=== PATIENT | female | born 1950 | race Caucasian/White ===

== ENCOUNTER 2018-04-01 22:37 | Emergency (ER) | payer MEDICARE, OTHER, SELFPAY ==
[2018-04-01 22:38] VITALS: BP 145/65; PULSE 72; RESP 15; TEMP 36.6; BMI 22.1
--- NOTE | 2018-04-01 22:47 | ED.RN ---
RN CALLED FOR EKG, NO OLD EKGS IN MUSE
--- NOTE | 2018-04-01 23:18 | EKG12_ITS ---
Test Reason : CP Blood Pressure : / mmHG Vent. Rate : 065 BPM Atrial Rate : 065 BPM P-R Int : 152 ms QRS Dur : 072 ms QT Int : 394 ms P-R-T Axes : 016 007 002 degrees QTc Int : 409 ms Normal sinus rhythm Minimal voltage criteria for LVH, may be normal variant Possible Inferior infarct , age undetermined Abnormal ECG Confirmed by ANNETTE DELA CRUZ, JORGE ([id number]), newspaper or periodical editor MICHEL MANCILLA ([id number]) on 04/04/2018 9:08:41 AM Referred By: ERLINDA Confirmed By:JORGE BRYANT MD
--- NOTE | 2018-04-01 23:18 | RAD_ITS ---
STUDY: X-RAY CHEST REASON FOR EXAM: Female, 68 years old. C/O MID EPIGASTRIC CP THAT STARTED ABOUT AN HOUR AGO. HAS HAD SIMILAR EPISODES OF PAIN THIS MONTH TECHNIQUE: Frontal and lateral views of the chest. COMPARISON: None. FINDINGS: The lungs are clear and expanded. There is no demonstrated pleural abnormality. Normal size heart. Normal mediastinum and masood. Normal visualized pulmonary arteries. Normal visualized aortic arch and descending thoracic aorta. There are diffuse degenerative changes of the visualized thoracic spine. Normal visualized ribs, clavicles, and shoulders. There is no demonstrated abnormality of the visualized soft tissue structures of the upper abdomen. RAD/Chest PA and Lateral IMPRESSION: Degenerative changes, as described above. No demonstrated acute cardiopulmonary process. Electronically Signed: Sia Perez MD at 1:35 EST Tel , Service support ,
--- NOTE | 2018-04-01 23:19 | ED.VIS.GEN ---
History of Present Illness Chief Complaint: Chest Pain Informant: Patient Onset: Today - started 2 hrs ago Context: Sudden Onset - while at rest Timing: Continuous Quality: burning w/ some tightness Location: central chest, radiating up to throat Current Severity: Mild Maximum Severity: Moderate Worsened by: sitting up or standing. nonpleuritic, nonexertional. Relieved by: lying back Narrative: This is the third episode patient has had in the last 2 weeks of this, this 1 has been more persistent. With the prior 2 episodes, she resolved 1 of them with aspirin and 1 of them with antacids. Today, prior to coming here she tried Tums, gio, and baking soda dissolved in water. She states she does not know if that helped or not, but she does feel like it is less intense now. She had no other associated symptoms or radiations. No arm discomfort, palpitations, lightheadedness, sweating, nausea, vomiting, shortness of breath. No recent illness or cough. No edema in her legs or calf swelling, although she sprained her ankle on the right recently and has had some associated swelling there. No history of heart problems, had a stress test about 6 years ago that was negative, that was routine. In the last month or so, since a routine doctor appointment which she had blood work, she has been taking a baby aspirin daily for prevention purposes given her age. She also started taking medicine for cholesterol. She takes no other medications. She is a non-smoker. No strong family history of heart disease at young ages in first-degree family members. - Past Medical History (1) Hyperlipidemia Status: Chronic Past Medical History - Allergies and Home Meds Allergies/Adverse Reactions: Allergies Sulfa (Sulfonamide Antibiotics) Adverse Reaction (Verified 04/01/18 22:42) Rash Smoking Status: Never smoker Drugs: None Review of Systems All systems negative except as indicated General: Denies: Chills, Fever, Sweats Eyes: Denies: Visual changes - bilaterally, Diplopia ENT: Denies: Rhinorrhea, Sore throat Cardiovascular: Reports: Chest pain. Denies: Palpitations, Heart racing Respiratory: Denies: Dyspnea, Cough, Dyspnea on exertion, Orthopnea Gastrointestinal: Denies: Abdominal pain, Nausea, Vomiting, Diarrhea, Melena, Hematochezia Genitourinary: Denies: Dysuria, Hematuria, Frequency Musculoskeletal: Reports: Swelling - right ankle due to sprain, Extremity Pain - right ankle due to sprain. no other extremity pain.. Denies: Back pain Skin: Denies: Rash, Wounds Neurological: Denies: Headache, Weakness, Numbness Psych: Denies: Depression, Anxiety Endocrine: Denies: Polyuria, Polydipsia Hematologic: Denies: Easy bruising, Easy bleeding Allergy: Denies: Swelling of the mouth, Swelling of the tongue Physical Exam Vital Signs/Narrative: Vital Signs Temp Pulse Resp BP 04/01/18 22:38 97.9 F 72 15 145/65 H Inital Vital Signs reviewed: Yes General: Well nourished, Well developed Head: Normocephalic, Atraumatic Eyes: Perrl, EOMI ENT: Moist mucous membranes, No rhinorrhea Neck: Supple, Nontender Cardiovascular: Regular rate, Regular rhythm, No murmurs, Normal S1, Normal S2 Respiratory: No distress, CTA bilaterally, Chest nontender Abdomen: Soft, Nontender, Nondistended, Normal bowel sounds Back: Nontender, Normal Inspection Extremities: Nontender, No edema, - - equal bilat 2+/4 pulses Skin: Normal color, No rash Neurological: Alert, Oriented x3, Cranial nerves II-XII grossly intact, Normal Strength, Normal Sensation Psychological: Normal affect Diagnostic/Tx/Re-eval Impressions Chest X-Ray 04/01/18 23:18 IMPRESSION: Degenerative changes, as described above. No demonstrated acute cardiopulmonary process. Electronically Signed: Sia Perez MD at 1:35 EST Tel , Service support , 04/01/18 23:18 Chest PA and Lateral [RAD] Stat Laboratory Results 04/01/18 04/02/18 22:50 01:48 Troponin I < 0.015 < 0.015 - Rhythm Strip Rhythm Strip: Sinus Rhythm Rate: 65 Ectopy: None - EKG Initial EKG Interpretation: Sinus Rhythm, No Acute Injury Pattern, - - nml EKG except for deep Q's in III only (which can be nml variant). no repol abn or ST seg deviations. - Medical Decision Making Patient has her PCP in [place], she is here visiting her dad/family, he is ill. She had routine labs including a CMP and a CBC by her PCP about 1 month ago, I reviewed all of it because the patient pulled it up from her health portal on her cell phone, and it is all normal, so we did not repeat those today. She is not anemic. Her GAURAV risk score is 2, for age and the fact that she has been taking aspirin daily for the past 7 days. Her heart score is 3; 2 for age, 0 for history, 0 for EKG and troponin, and 1 for risk factor of hyperlipidemia. According to the heart pathway, and initial troponin was negative and a repeat was obtained 3 hours later, and was also negative for a delta of 0. I discussed the risks and benefits of undergoing this pathway, including getting a single troponin that was negative and being discharged as a relatively low risk patient with a 30-day myocardial event risk of 1.7%, she chose to wait for the second troponin which is negative. After a GI cocktail, her chest discomfort resolved. Given the heart pathway studies, her risk of a 30-day myocardial event is less than 1%, so I feel comfortable discharging her home safely to follow-up with her PCP at least within that timeframe. In the meantime, her symptoms certainly could be esophageal or reflux-related, and I recommend a PPI daily for 2 weeks as a trial for now until she follows up. We discussed at length and she is comfortable with that plan. ED Disposition - Plan for ED Patient: Disposition: Home or Assisted Living Chief Complaint: Chest Pain Diagnosis: Chest pain, unspecified Instructions: ED Chest Pain Atypical Unkn Cause Prescriptions: Pantoprazole Sodium [Protonix] 40 mg PO DAILY #14 tab Referrals: [facility] Doctor,Out of [Primary Care Provider] - (when able)
[2018-04-01] MEDS: Mag Hydrox/Al Hydrox/Simeth 30 ML UDC PO (23:28)
[2018-04-01 23:37] VITALS: BP 124/44; PULSE 68; RESP 19; O2SAT 96
[2018-04-02 00:28] VITALS: BP 106/52; PULSE 67; RESP 19; O2SAT 99
[2018-04-02 01:00] VITALS: BP 116/45; PULSE 69; RESP 21
[2018-04-02] MEDS: Pantoprazole Sodium 40 MG Tablet PO (02:30)
[2018-04-02 02:31] VITALS: BP 105/68; RESP 18
== END 2018-04-02 02:33 | disposition home or self-care (01) ==
PROVIDERS: Emergency Provider Emergency Medicine
DX: R07.9 Chest pain, unspecified (principal); E78.5 Hyperlipidemia, unspecified; Z79.82 Long term (current) use of aspirin; Z79.899 Other long term (current) drug therapy
CPT/HCPCS: 71046; 84484; 93005; 99285; A4216

== ENCOUNTER → 2020-10-28 12:56 | Outpatient (CLI) | payer MEDICARE, OTHER, SELFPAY ==
[2020-10-28 15:32] LABS: AST(SGOT) 26 U/L (15-37); Alanine Aminotransfer ALT/SGPT 45 U/L (13-56); Albumin, Serum 3.6 g/dL (3.2-5.0); Alkaline Phosphatase 53 U/L (45-117); Anion Gap 7 (5-15); BUN 16 mg/dL (7-18); BUN/Creat Ratio 22.7 RATIO (10-20); Calcium,Total 8.5 mg/dL (8.5-10.1); Chloride 106 mmol/L (98-107); EST Glomerular Filtration Rate 87 mL/min (>60); Est Glom Filt Rate - Afr Amer 106 mL/min (>60); Ferritin 72 ng/mL (8-252); Free T3 2.2 pg/mL (2.18-3.98); Globulin 3.5 g/dL (2.2-4.2); Glucose 88 mg/dL (74-106); Potassium 3.6 mmol/L (3.5-5.1); Protein, Total 7.1 g/dL (6.4-8.2); Sodium Level 140 mmol/L (136-145); T3 Uptake 34 % (30-39); T4 Free Direct 0.65 ng/dL (0.76-1.46)
[2020-10-31 16:09] LABS: Zinc, WHOLE BLOOD 618 ug/dL (440-860)
[2020-10-31 18:30] LABS: Thyroid Peroxidase AB 20 IU/mL (0-34)
== END ==
PROVIDERS: PCP Internal Medicine; Referring Provider Physician Assistant Medical; Visit Provider Physician Assistant Medical
DX: L65.0 Telogen effluvium (principal)
CPT/HCPCS: 36415; 80053; 82728; 84439; 84443; 84479; 84480; 84481; 84630; 86376

== ENCOUNTER → 2021-01-27 08:57 | Outpatient (CLI) | payer MEDICARE, OTHER, SELFPAY ==
[2021-01-27 09:45] LABS: Absolute Lymphocyte Count 1.53 X10^3/uL (0.83-4.51); Absolute Neutrophil Count 2.7 X10^3/uL (2.0-7.7); Basophil# 0.02 X10^3/uL; Basophil% 0.4 % (0-1); Eosinophil# 0.06 X10^3/uL; Eosinophils% 1.3 % (0-5); Hemoglobin 13.5 g/dL (12.0-15.0); Lymphocyte # 1.53 X10^3/ul (0.83-4.51); Lymphocyte % 32.7 % (19-41); Mean Corp Hgb Conc 32.9 g/dL (32-36); Mean Corpuscular Hgb 30.8 pg (27.0-32.0); Mean Corpuscular Volume 93.4 fL (81-99); Mean Platelet Vol. 11.7 fl (6.2-12.0); Monocyte# 0.39 X10^3/uL; Monocyte% 8.3 % (0-10); NRBC Flagged by Analyzer 0 % (0-5); Neutrophil # 2.67 X10^3/uL (2.7-7.7); Neutrophil % 57.1 % (47-70); Platelet Count 203 K/mm3 (150-450); RBC Distribution Width CV 11.7 % (11.6-14.6); RBC Distribution Width SD 40.3 fl (35.1-43.9); Red Blood Count 4.39 M/mm3 (4.2-5.4); White Blood Count 4.7 K/mm3 (4.4-11.0)
== END ==
PROVIDERS: PCP Internal Medicine; Referring Provider Nurse Practitioner; Visit Provider Nurse Practitioner
DX: Z13.0 Encounter for screening for diseases of the blood and blood-forming organs and certain disorders involving the immune mechanism (principal); Z86.16 Personal history of COVID-19
CPT/HCPCS: 36415; 85025; 86769

== ENCOUNTER → 2021-03-04 08:41 | Outpatient (CLI) | payer MEDICARE, OTHER, SELFPAY ==
--- NOTE | 2021-03-04 08:44 | BI_ITS ---
MAMMOGRAPHY - BILATERAL SCREENING REASON FOR EXAM: Female, 71 years old. Routine annual screening examination. PERTINENT HISTORY: Non-contributory. TECHNIQUE: Digital bilateral breast louise (3D mammographic acquisition) in the CC and MLO projections. 2-D mediolateral oblique (MLO) and craniocaudad (CC) views of both breasts were obtained. CAD: Full Field Digital Mammography with Computer Added Detection was performed. COMPARISON: Comparison is made with prior outside examination dated 02/08/2020. FINDINGS: Breast Composition: There are scattered areas of fibroglandular density. There are no dominant masses or suspicious calcifications. Stable small benign appearing bilateral axillary lymph nodes. No other significant abnormalities are identified. There has been no significant change since the prior study. BI/SCRN MAMM (CAD)W/LOUISE BILAT IMPRESSION: Stable bilateral screening mammogram. Yearly follow-up mammogram recommended. (A) ASSESSMENT CATEGORY: BIRADS Category 2: Benign. A letter regarding these results will be sent to the patient by the facility within 30 days. Approximately 10% of breast cancers are not detected by mammography. A normal mammogram should not delay biopsy of a clinically suspicious abnormality. [id number] Electronically Signed: Jorge Bearden MD at 11:07 EST , Service support ,
--- NOTE | 2021-03-04 08:53 | BD_ITS ---
STUDY: DUAL ENERGY X-RAY ABSORPTIOMETRY / DXA REASON FOR EXAM: Female, 71 years old. Z780. The patient is postmenopausal. TECHNIQUE: Bone Mineral Density (BMD) measurements of lumbar spine and bilateral hips were obtained. COMPARISON: None. FINDINGS: Lumbar Spine (L1-L4): g/cm2 (0.746) / T-score (-2.7) / Z-score (-0.6) Findings are suggestive of osteoporosis with a high fracture risk. Left Femur Total: g/cm2 (0.782) / T-score (-1.3) / Z-score (0.2) Left Femoral Neck: g/cm2 (0.650) / T-score (-1.8) / Z-score (0.0) Right Femur Total: g/cm2 (0.821) / T-score (-1.0) / Z-score (0.5) Right Femoral Neck: g/cm2 (0.666) / T-score (-1.7) / Z-score (0.1) BD/Dexa Bone Density Study IMPRESSION: The patient is considered osteoporotic as outlined below according to World [employer] Organization (WHO) criteria with a high fracture risk. Reference Information: The T-score is the number of standard deviations above or below the standard which is normal for young adults at their peak bone mineral density. The World Health Organization (WHO) interprets the T-scores as follows: Above -1 Normal bone density Between -1 and -2.5 Osteopenia Equal to / or below -2.5 Osteoporosis As a practical clinical guideline, osteopenia may be graded as follows: Mild -1 through -1.5 Moderate -1.6 through -2.0 Severe -2.1 through -2.4 The Z-score is the number of standard deviations above or below age-matched controls. A Z-score of less than -1.5 would be considered abnormal. References: 1. NIH Osteoporosis and Related Bone Diseases www osteo.org 2. International Society for Clinical Densitometry www iscd.org 3. National Osteoporosis Foundation www nof.org Electronically Signed: Jorge Bearden MD at 8:21 EST , Service support ,
== END ==
PROVIDERS: PCP Internal Medicine; Referring Provider Nurse Practitioner; Visit Provider Nurse Practitioner
DX: Z78.0 Asymptomatic menopausal state (principal); Z12.31 Encounter for screening mammogram for malignant neoplasm of breast
CPT/HCPCS: 77063; 77067; 77080

== ENCOUNTER → 2022-03-15 | Outpatient (CLI) | payer MEDICARE, OTHER, SELFPAY ==
--- NOTE | 2022-03-15 15:25 | BI_ITS ---
MAMMOGRAPHY - BILATERAL SCREENING REASON FOR EXAM: Female, 72 years old. Routine annual screening examination. PERTINENT HISTORY: Non-contributory. TECHNIQUE: Digital bilateral breast louise (3D mammographic acquisition) in the CC and MLO projections. 2-D mediolateral oblique (MLO) and craniocaudad (CC) views of both breasts were obtained. CAD: Full Field Digital Mammography with Computer Added Detection was performed. COMPARISON: Comparison is made with prior study dated 03/04/2021. FINDINGS: Breast Composition: There are scattered areas of fibroglandular density. There are no dominant masses or suspicious calcifications. Stable small benign-appearing bilateral axillary lymph nodes. No other significant abnormalities are identified. There has been no significant change since the prior study. BI/SCRN MAMM (CAD)W/LOUISE BILAT IMPRESSION: Stable bilateral screening mammogram. Yearly follow-up mammogram recommended. (A) ASSESSMENT CATEGORY: BIRADS Category 2: Benign. A letter regarding these results will be sent to the patient by the facility within 30 days. Approximately 10% of breast cancers are not detected by mammography. A normal mammogram should not delay biopsy of a clinically suspicious abnormality. [id number] Electronically Signed: Jorge Bearden MD at 9:05 EST ,
== END | disposition home or self-care (01) ==
LOC: OPBI 15:21
PROVIDERS: PCP Internal Medicine; Referring Provider Nurse Practitioner Family; Visit Provider Nurse Practitioner Family
DX: Z12.31 Encounter for screening mammogram for malignant neoplasm of breast (principal)
CPT/HCPCS: 77063; 77067

== ENCOUNTER → 2023-03-08 | Outpatient (CLI) | payer MEDICARE, OTHER, SELFPAY | END | disposition home or self-care (01) | LOC: OPBD 09:03 | PROVIDERS: PCP Internal Medicine; Referring Provider Nurse Practitioner Family; Visit Provider Nurse Practitioner Family | DX: Z12.31 Encounter for screening mammogram for malignant neoplasm of breast (principal) ==

== ENCOUNTER → 2023-03-16 | Outpatient (CLI) | payer MEDICARE, OTHER, SELFPAY ==
--- NOTE | 2023-03-16 09:38 | BI_ITS ---
MAMMOGRAPHY - BILATERAL SCREENING REASON FOR EXAM: Female, 73 years old. Routine annual screening examination. PERTINENT HISTORY: Non-contributory. TECHNIQUE: Digital bilateral breast louise (3D mammographic acquisition) in the CC and MLO projections. 2-D mediolateral oblique (MLO) and craniocaudad (CC) views of both breasts were obtained. CAD: Full Field Digital Mammography with Computer Added Detection was performed. COMPARISON: Comparison is made with prior study dated March 15, 2022 and March 04, 2021. FINDINGS: Breast Composition: There are scattered areas of fibroglandular density. There are no dominant masses or suspicious calcifications. Stable benign-appearing bilateral axillary lymph nodes. No other significant abnormalities are identified. There has been no significant change since the prior study. BI/SCRN MAMM (CAD)W/LOUISE BILAT IMPRESSION: Stable bilateral screening mammogram. Yearly follow-up mammogram recommended. (A) ASSESSMENT CATEGORY: BIRADS Category 2: Benign. A letter regarding these results will be sent to the patient by the facility within 30 days. Approximately 10% of breast cancers are not detected by mammography. A normal mammogram should not delay biopsy of a clinically suspicious abnormality. [id number] Electronically Signed: Jorge Bearden MD at 10:18 EST ,
== END | disposition home or self-care (01) ==
LOC: OPBI 09:35
PROVIDERS: PCP Internal Medicine; Visit Provider Internal Medicine
DX: Z12.31 Encounter for screening mammogram for malignant neoplasm of breast (principal)
CPT/HCPCS: 77063; 77067

== ENCOUNTER → 2023-03-31 | Outpatient (CLI) | payer OTHER, MEDICARE, SELFPAY ==
--- NOTE | 2023-03-31 13:53 | BD_ITS ---
STUDY: DUAL ENERGY X-RAY ABSORPTIOMETRY / DXA REASON FOR EXAM: Female, 73 years old. Z780 TECHNIQUE: Bone Mineral Density (BMD) measurements of lumbar spine and bilateral hips were obtained. COMPARISON: Comparison is made with prior study dated March 04, 2021. FINDINGS: Lumbar Spine (L1-L4): g/cm2 (0.770) / T-score (-2.5) / Z-score (-0.3) Findings are suggestive of osteoporosis with a high fracture risk. Left Femur Total: g/cm2 (0.783) / T-score (-1.3) / Z-score (0.3) Left Femoral Neck: g/cm2 (0.642) / T-score (-1.9) / Z-score (0.1) Right Femur Total: g/cm2 (0.800) / T-score (-1.2) / Z-score (0.5) Right Femoral Neck: g/cm2 (0.662) / T-score (-1.7) / Z-score (0.2) The T-Scores on the most recent prior examination were: Lumbar Spine (L1-L4): There has been improvement of bone density since the previous examination. Left Femur Total: which represents an improvement of 0.2%. Right Femur Total: which represents a worsening of 2.7%. BD/Dexa Bone Density Study IMPRESSION: The patient is considered osteoporotic as outlined below according to World [employer] Organization (WHO) criteria with a high fracture risk. There has been improvement of bone density since the previous examination. Reference Information: The T-score is the number of standard deviations above or below the standard which is normal for young adults at their peak bone mineral density. The World Health Organization (WHO) interprets the T-scores as follows: Above -1 Normal bone density Between -1 and -2.5 Osteopenia Equal to / or below -2.5 Osteoporosis As a practical clinical guideline, osteopenia may be graded as follows: Mild -1 through -1.5 Moderate -1.6 through -2.0 Severe -2.1 through -2.4 The Z-score is the number of standard deviations above or below age-matched controls. A Z-score of less than -1.5 would be considered abnormal. References: 1. NIH Osteoporosis and Related Bone Diseases www osteo.org 2. International Society for Clinical Densitometry www iscd.org 3. National Osteoporosis Foundation www nof.org Electronically Signed: Jorge Bearden MD at 15:25 EST ,
--- OUTSIDE RECORDS SUMMARY | 2023-03-31 16:35 | XMS RPT_ITS | CCD ---
Author Name Unknown Address [address] [facility] [facility] [address] [place] [address] Organization [facility] Care Team Providers Care Riprap Worker Name Role Phone Selena Pacheco CNP Unavailable Marilynn Guadalupe Unavailable Dr. Waqar Azevedo Unavailable Janusz Jara LPN Unavailable Unavailable Unavailable Unavailable Todd STANLEY, Jacquie Unavailable Unavailable Selena Pacheco Unavailable Kylie Angel MD Unavailable Selena Pacheco Unavailable TUAN Guadalupe LPN Unavailable Unavailable Nathaly Lopez LPN Unavailable Unavailable Annie Crockett CNP Unavailable [phone] Annie Crockett CNP Unavailable Cindy Cortez Unavailable Sandy Ryan MA Unavailable Unavailable Annie Crockett CNP Attending Unavailable Annie Crockett CNP Referring Unavailable Annie Crockett CNP Consulting Unavailable Vanessa Garza MA Unavailable Unavailable Allergies Allergy Classification Reported Allergen(s) Allergy Type Date of Onset Reaction(s) Facility (17 sources) Sulfacetamide; Translations: [Sulfa 10 *OPHTHALMIC AGENTS*] Drug Allergy [facility] Work Phone: Medications Completed/Discontinued Medications Medication Drug Class(es) Dates Sig (Normalized) Sig (Original) alendronic acid 70 mg oral tablet (15 sources) Bisphosphonate Start: 04-28-2021 End: 02-09-2022 take 1 tablet by mouth every week Fosamax 70 MG Oral Tablet 1 (one) Tablet q week for 0 days Quantity: 12 {Tablet} Refills: 3 Ordered: 09-Feb-2022 Jessica MARKETING TECHNOLOGY SPECIALISTNathaly Pretty Start : 28-Apr-2021 End : 09-Feb-2022 Inactive Comments: Take with water 30 min before your first food or drink or med. Avoid lying downd for 30 min Begin Apr 2021 Problems Active Problems Problem Classification Problem Date Documented Da te Episodic/Chronic Disorders of lipid metabolism (20 sources) Hypercholesterolemia ; Translations: [Hypercholesteremia] 02-22-2021 Chronic Past or Other Problems Problem Classification Problem Date Documented Da te Episodic/Chronic Deficiency and other anemia (6 sources) Deficiency and other anemia Diabetes mellitus without complication (6 sources) Diabetes mellitus without complication Unclassified (17 sources) Deliveries (Parity); Translations: [Deliveries (Parity)] 01-30-2021 Results Test Name Value Interpretation Reference Range Facil ity Vital Signs Date Time Vital Sign Value Performing Clinician Facility 09-13-2022 10:15-0400 Body height 160.66 cm Nathaly Lopez LPN [facility] Work Phone: 09-13-2022 10:15-0400 Body mass index (BMI) [Ratio] 23.55 kg/m2 Nathaly Lopez LPN [facility] Work Phone: 09-13-2022 10:15-0400 Body surface area Derived from formula 1.64 m2 Nathaly Lopez LPN [facility] Work Phone: 09-13-2022 10:15-0400 Body temperature 97.3 [degF] Nathaly Lopez LPN [facility] Work Phone: Encounters Encounter Date Encounter Type Care Provider Facility Start: 09-13-2022 End: 09-17-2022 Office outpatient visit 15 minutes Annie Crockett CNP Work Phone: [facility] Start: 09-13-2022 Review Annie Crockett CNP Work Phone: [facility] Start: 08-27-2022 End: 08-27-2022 Annotation/Addendum Annie Crockett CNP Work Phone: [facility] Start: 03-10-2022 ambulatory Annie Crockett CNP [facility] Start: 03-10-2022 End: 03-10-2022 Office outpatient visit 15 minutes Annie Crockett CNP Work Phone: [facility] Start: 02-10-2022 End: 02-10-2022 Lab Order Annie Crockett CNP Work Phone: [facility] Start: 02-09-2022 Review Annie Crockett CNP Work Phone: [facility] Start: 02-09-2022 End: 02-09-2022 Office outpatient visit 15 minutes Annie Crockett CNP Work Phone: [facility] Start: 09-03-2021 End: 09-03-2021 Lab Order Selena Pacheco Work Phone: [facility] Start: 09-03-2021 End: 09-03-2021 Office outpatient new 20 minutes Selena Huffa Work Phone: [facility] Start: 08-23-2021 End: 08-26-2021 Office outpatient visit 25 minutes Seelna Pacheco Work Phone: [facility] Start: 04-28-2021 End: 04-28-2021 Office outpatient visit 15 minutes Selena Huffa BENZENE WASHER OPERATOR Work Phone: [facility] Start: 03-09-2021 End: 03-09-2021 Annotation/Addendum Selena Huffa BENZENE WASHER OPERATOR Work Phone: [facility] Start: 02-22-2021 End: 02-22-2021 Annotation/Addendum Selena Huffa BENZENE WASHER OPERATOR Work Phone: [facility] Start: 01-30-2021 End: 01-30-2021 Office outpatient visit 15 minutes Selena Huffa BENZENE WASHER OPERATOR Work Phone: [facility] Start: 01-27-2021 End: 01-27-2021 Office outpatient visit 15 minutes Selena Huffa BENZENE WASHER OPERATOR Work Phone: [facility] Start: 01-16-2021 End: 01-16-2021 Annotation/Addendum Selena Huffa BENZENE WASHER OPERATOR Work Phone: [facility] Start: 01-16-2021 End: 01-16-2021 Office outpatient visit 25 minutes Selena Pacheco CNP Work Phone: [facility] Procedures Date Procedure Procedure Detail Performing Clinician Start: 03-15-2022 End: 03-16-2022 SCRN MAMM (CAD)W/LOUISE BILAT Procedure Note: See Note; NOTES: [facility] Imaging Services [address] [place] [address] SCRN MAMM (CAD)W/LOUISE BILAT MR#: [id number] Acct: [id number] Name: BRENT THOMAS Rep #: [id number] : 1950 F 72 From: Jorge john MD PCP: Dr. Sammi Huber, DO Status: [facility] Study: SCRN MAMM (CAD)W/LOUISE BILAT Date of Exam: 02/25 12/17 Exam# [id number] Ordering Dr: Annie Crockett CORPORATE TREASURY ANALYST- C MAMMOGRAPHY - BILATERAL SCREENING REASON FOR EXAM: Female, 72 years old. Routine annual screening examination. PERTINENT HISTORY: Non-contributory. TECHNIQUE: Digital bilateral breast louise (3D mammographic acquisition) in the CC and MLO projections. 2-D mediolateral oblique (MLO) and craniocaudad (CC) views of both breasts were obtained. CAD: Full Field Digital Mammography with Computer Added Detection was performed. COMPARISON: Comparison is made with prior study dated 03/04/2021. FINDINGS: Breast Composition: There are scattered areas of fibroglandular density. There are no dominant masses or suspicious calcifications. Stable small benign-appearing bilateral axillary lymph nodes. No other significant abnormalities are identified. There has been no significant change since the prior study. BI/SCRN MAMM (CAD)W/LOUISE BILAT IMPRESSION: Stable bilateral screening mammogram. Yearly follow-up mammogram recommended. (A) ASSESSMENT CATEGORY: BIRADS Category 2: Benign. A letter regarding these results will be sent to the patient by the facility within 30 days. Approximately 10% of breast cancers are not detected by mammography. A normal mammogram should not delay biopsy of a clinically suspicious abnormality. [id number] Electronically Signed: Jorge Bearden MD at 9:05 EST Reading Location ID and State: [address] [place] [address] , Service support , CC: Annie Crockett CORPORATE TREASURY ANALYST; Dr. Sammi Huber DO Water Rights Specialist: Signed Annie Crockett CNP Work Phone: Start: 08-20-2021 End: 08-20-2021 Urgent Care Visit Report Comments: See Note; NOTES: [facility] [address] [place] [address] [address] [id number] OFFICE VISIT Date of Service: 08/20/21 MR#: [id number] Acct: [id number] Name: BRENT THOMAS Rep #: [id number] : 1950 Provider: [place] diggs Age/Sex: 71/F Location: [facility] Status: Signed Intake Vital Signs 08/20/21 13:06 Height 5 ft 5 in Weight: 138 lb BMI 22.9 BP 100/60 Blood Pressure Location Lt brachial Position Sitting Respiration 14 Pulse 63 Pulse Source Monitor Temp 98.0 F Temp Source Temporal Pulse Oximetry (%) 98 Oxygen Delivery Method room air Intake Visit Reasons: TICK BITE Allergies Sulfa (Sulfonamide Antibiotics) Adverse Reaction (Verified 08/20/21 13:10) Rash Medications doxycycline monohydrate 100 mg capsule 100 mg PO BID #28 cap 08/20/21 [Rx Confirmed 08/20/21] rosuvastatin 5 mg tablet 5 mg PO DAILY PRN tab 08/20/21 [History Confirmed 08/20/21] [facility] Medical History (Updated 08/20/21 @ 13:16 by Cole BERUMEN, PA) delivery delivered Erythema migrans (Lyme disease) Social History Smoking Status: Never smoker HPI HPI Details: BRENT THOMAS, is a 71 F who presents to the office today for initial evaluation approximately 10-day history of persistent erythematous lesion of approximately 2.5 cm diameter with central clearing noticed to the left breast. No localized erythema or warmth or discharge or pruritus appreciated. Patient noted having a moderate headache 4 to 5 days ago which lasted approximately 48 hours and has since self resolved. She otherwise notes no complaints of fever, chills, muscle aches, joint pain, neck pain, Estrada's palsy symptoms, heart rhythm disturbances, hypotension, jaundice. Patient admits never visualizing a tick to the same affected area but does note she goes for walks in the local environment on occasion though no wildlife exposure that she is aware of. No other associated symptoms and no other alleviating/aggravating factors. ROS Const Constitutional: No other (As above) Exam Const General: cooperative, healthy appearing, comfortable and no acute distress Nutritional Appearance: average body habitus and well nourished Orientation: alert, awake and oriented x3 HENMT Head: normal to inspection Ears: external ears normal Nose: external nose normal Face and sinus: normal facial exam and face symmetric Mouth: oral mucosae normal, lip normal, tongue normal and moist mucous membranes Throat: posterior oropharynx normal Eyes General: appearance normal, both eyes and all related structures Neck Neck: normal visual inspection Chest Chest palpation inspection: normal inspection of the chest Resp Effort Inspection: normal respiratory effort, able to speak in complete sentences and symmetric chest movement Cardio Rate: regular rate Pulses: radial pulses present GI Inspection: normal to inspection Skin Lesions: other ( 2.5 cm diameter lesion with central clearing noticed to L breast) Rashes: no rashes Neuro General: patient alert, patient awake, patient oriented x3 and gait normal Cognition: normal cognition Speech: speech normal Gait: normal gait Motor: muscle tone normal throughout Sensory Exam: no sensory deficits noted Psych Appearance: grossly normal Mental Status: mental status grossly normal Mood: congruent mood Affect: normal affect Speech and Movement: speech and movement normal Attitude: cooperative Thought Process: normal Thought Content: normal Judgment: judgment good Coding Level of Care Code Off vis,new,level 3 Diagnoses Erythema migrans (Lyme disease) A69.20 Assessment and Plan Assessment and Plan (1) Erythema migrans (Lyme disease): Status: Chronic Plan - Cole BERUMEN, PA: Picture of lesion taken today with patient's smart phone. Doxycycline as prescribed today. Skin care measures as instructed today. Follow-up with PCP for reassessment and continuation of care in 5 to 7 days at which time patient will share picture of lesion taken with her smart phone, sooner should symptoms worsen or any other concerns develop. Patient states acknowledging understanding all the above. This note was generated with DNsolution software. It may contain incorrect words, spelling, and punctuation that were not noted in checking the note before signing. Plan Details Other Medications: New: doxycycline monohydrate 100 mg PO BID 28 caps 0RF 08/20/21 1323 <Electronically signed by Cole BERUMEN> Date Cole BERUMEN Cosigner Signature: Date (if applicable) CC: Selena Pacheco Work Phone: Start: 03-04-2021 End: 03-06-2021 Dexa Bone Density Study Comments: See Note; NOTES: [facility] Imaging Services [address] [place] [id number] Dexa Bone Density Study MR#: [id number] Acct: [id number] Name: BRENT THOMAS Rep #: [id number] : 1950 F 71 From: Jorge john MD PCP: Dr. Sammi Huber, Status: REG CLI Study: Dexa Bone Density Study Date of Exam: 03/04/21 Exam# [id number] Ordering Dr: Selena Pacheco NP CORPORATE TREASURY ANALYST-C STUDY: DUAL ENERGY X-RAY ABSORPTIOMETRY / DXA REASON FOR EXAM: Female, 71 years old. Z780. The patient is postmenopausal. TECHNIQUE: Bone Mineral Density (BMD) measurements of lumbar spine and bilateral hips were obtained. COMPARISON: None. FINDINGS: Lumbar Spine (L1-L4): g/cm2 (0.746) / T-score (-2.7) / Z-score (-0.6) Findings are suggestive of osteoporosis with a high fracture risk. Left Femur Total: g/cm2 (0.782) / T-score (-1.3) / Z-score (0.2) Left Femoral Neck: g/cm2 (0.650) / T-score (-1.8) / Z-score (0.0) Right Femur Total: g/cm2 (0.821) / T-score (-1.0) / Z-score (0.5) Right Femoral Neck: g/cm2 (0.666) / T-score (-1.7) / Z-score (0.1) BD/Dexa Bone Density Study IMPRESSION: The patient is considered osteoporotic as outlined below according to World [employer] Organization (WHO) criteria with a high fracture risk. Reference Information: The T-score is the number of standard deviations above or below the standard which is normal for young adults at their peak bone mineral density. The World Health Organization (WHO) interprets the T-scores as follows: Above -1 Normal bone density Between -1 and -2.5 Osteopenia Equal to / or below -2.5 Osteoporosis As a practical clinical guideline, osteopenia may be graded as follows: Mild -1 through -1.5 Moderate -1.6 through -2.0 Severe -2.1 through -2.4 The Z-score is the number of standard deviations above or below age-matched controls. A Z-score of less than -1.5 would be considered abnormal. References: 1. NIH Osteoporosis and Related Bone Diseases www osteo.org 2. International Society for Clinical Densitometry www iscd.org 3. National Osteoporosis Foundation www nof.org Electronically Signed: Jorge Bearden MD at 8:21 EST , Service support , CC: JENS Pacheco; Dr. Sammi Huber DO Water Rights Specialist: Signed Selena Pacheco [facility] Work Phone: Start: 03-04-2021 End: 03-09-2021 SCRN MAMM (CAD)W/LOUISE BILAT Comments: See Note; NOTES: [facility] Imaging Services [address] [place] [address] SCRN MAMM (CAD)W/LOUISE BILAT MR#: [id number] Acct: [id number] Name: BRENT THOMAS Rep #: [id number] : 1950 F 71 From: Jorge john MD PCP: Dr. Sammi Huber DO Status: REG CLI Study: SCRN MAMM (CAD)W/LOUISE BILAT Date of Exam: 11/15 Exam# [id number] Ordering Dr: Selena Pacheco NP CORPORATE TREASURY ANALYST-C MAMMOGRAPHY - BILATERAL SCREENING REASON FOR EXAM: Female, 71 years old. Routine annual screening examination. PERTINENT HISTORY: Non-contributory. TECHNIQUE: Digital bilateral breast louise (3D mammographic acquisition) in the CC and MLO projections. 2-D mediolateral oblique (MLO) and craniocaudad (CC) views of both breasts were obtained. CAD: Full Field Digital Mammography with Computer Added Detection was performed. COMPARISON: Comparison is made with prior outside examination dated 02/08/2020. FINDINGS: Breast Composition: There are scattered areas of fibroglandular density. There are no dominant masses or suspicious calcifications. Stable small benign appearing bilateral axillary lymph nodes. No other significant abnormalities are identified. There has been no significant change since the prior study. BI/SCRN MAMM (CAD)W/LOUISE BILAT IMPRESSION: Stable bilateral screening mammogram. Yearly follow-up mammogram recommended. (A) ASSESSMENT CATEGORY: BIRADS Category 2: Benign. A letter regarding these results will be sent to the patient by the facility within 30 days. Approximately 10% of breast cancers are not detected by mammography. A normal mammogram should not delay biopsy of a clinically suspicious abnormality. [id number] Electronically Signed: Jorge Bearden MD at 11:07 EST , Service support , CC: JENS Pacheco; Dr. Sammi Huber DO Water Rights Specialist: Signed Selena Pacheco [facility] Work Phone: Bone Density- once Janusz Harmon MARKETING TECHNOLOGY SPECIALIST Bone Density- once Jacquie Cof fman MARKETING TECHNOLOGY SPECIALIST Bone Density- once TUAN saavedra MARKETING TECHNOLOGY SPECIALIST Bone Density- once Nathaly Sl arb MARKETING TECHNOLOGY SPECIALIST Bone Density- once Sandy mott MA Bone Density- once Nathaly Sl arb MARKETING TECHNOLOGY SPECIALIST 1985 Janusz Jara MARKETING TECHNOLOGY SPECIALIST 1985 Jacquie Brooks MARKETING TECHNOLOGY SPECIALIST 1985 TUAN Casillas l MARKETING TECHNOLOGY SPECIALIST 1985 Nathaly Slarb MARKETING TECHNOLOGY SPECIALIST 1985 Sandy Ryan MA 1986 Nathaly Slarb MARKETING TECHNOLOGY SPECIALIST Colonoscopy 2018 Janusz Bowden s MARKETING TECHNOLOGY SPECIALIST Plan of Treatment Date Care Activity Detail Author Start: 09-13-2022 Blood count complete auto&auto difrntl wbc CBC, PLATELETS & AUT DIFF (58651) [facility] Work Phone: Start: 09-13-2022 Comprehensive metabolic panel METABOLIC PANEL, COMPREHENSIVE (43543) [facility]; [facility] Work Phone: Start: 09-13-2022 Lipid panel LIPID PANEL (46092) [facility] Work Phone: Start: 09-13-2022 Procedure Education Eprescribed prescriptions (G8553) [facility]; [facility] Work Phone: Start: 09-13-2022 Provider Instructions for Treatment Follow up in 6 months [facility] Work Phone: Start: 08-27-2022 25 hydroxy includes fractions if performed CALCIFEDIOL (71844) [facility]; [facility] Work Phone: Start: 08-27-2022 Assay of thyroid stimulating hormone tsh TSH (THYROID STIMULATING HORMONE) (08330) [facility]; [facility] Work Phone: Start: 08-27-2022 Comprehensive metabolic panel METABOLIC PANEL, COMPREHENSIVE (52280) [facility]; [facility] Work Phone: Start: 08-27-2022 Lipid panel LIPID PANEL (19663) [facility] Work Phone: Start: 03-10-2022 Patient Education Interstitial Cystitis [facility] Work Phone: Start: 03-10-2022 Procedure Education Eprescribed prescriptions (G8553) [facility]; [facility] Work Phone: Start: 03-10-2022 Provider Instructions for Treatment [facility] Work Phone: Start: 02-10-2022 Lipid panel LIPID PANEL (93674) [facility] Work Phone: Start: 02-09-2022 Patient Education [facility] Work Phone: Start: 02-09-2022 Procedure Education Eprescribed prescriptions (G8553) [facility]; [facility] Work Phone: Start: 02-09-2022 Provider Instructions for Treatment Follow up [facility]; [facility] Work Phone: Start: 02-09-2022 Comprehensive metabolic panel METABOLIC PANEL, COMPREHENSIVE (85419) [facility]; [facility] Work Phone: Start: 02-09-2022 25 hydroxy includes fractions if performed CALCIFEDIOL (02701) [facility]; [facility] Work Phone: Start: 02-09-2022 Lipid panel LIPID PANEL (34278) [facility] Work Phone: Start: 02-09-2022 Urnls dip stick/tablet reagent auto microscopy Urinalysis, Complete W/ Microscopic Examination with reflex to urine culture, routine (78101) [facility]; [facility] Work Phone: Start: 09-03-2021 Antibody borrelia burgdorferi lyme disease Lyme Disease Antibody W/ Reflex (10798) [facility]; [facility] Work Phone: Start: 09-03-2021 Iadna borrelia burgdorferi amplified probe tq BORRELIA, NUCLEIC ACID AMPL PROBE (61539) [facility]; [facility] Work Phone: Start: 09-03-2021 Antibody borrelia relapsing fever BORRELIA ANTIBODY (00962) [facility]; [facility] Work Phone: Start: 04-28-2021 Procedure Education Eprescribed prescriptions (G8553) [facility]; [facility] Work Phone: Start: 04-28-2021 Provider Instructions for Treatment Follow up in 6 months [facility]; [facility] Work Phone: Start: 04-28-2021 Comprehensive metabolic panel Metabolic Panel, Comprehensive (74345) [facility]; [facility] Work Phone: Payers Date Payer Category Payer Medicare [id number] 2021 Unknown [id number] 1950 Unknown [id number] Unknown Social History Date Type Detail Facility Caffeine Use Caffeine Use [facility] Work Phone: Clinical Notes 02-13-2021 Note Date & Type Note Facility 02-13-2021 Note HNO ID: [id number] Author: Sara Moya MD Service: ? Author Type: Physician Type: Progress Notes Filed: 02/13/2021 9:34 AM Note Text: Soda Dry House Operator offered: Patient declines. Brent Thomas is a 71 year old female who presents for concerns regarding a vaginal cyst. Patient states in the 1979 she had Bartholin's cyst. She noticed a hard little cyst on the right side of the vagina she reports has not really significantly changed in size. She states it is only uncomfortable if she wears certain types of pants. She denies any drainage from the area. Denies any vaginal odors or discharge. She is not currently sexually active. Patient denies any changes with soap or detergents. Patient offers no other concerns at this time. OB History No obstetric history on file. Geoscience Professor History LMP: Age at Menarche: Age at First : Age at Menopause: Geoscience Professor History Comments: Sexual Activity: No sexual activity data on record; No partner data on record Contraception: No contraception data on record No past medical history on file. No past surgical history on file. No family history on file. Social History Tobacco Use - Smoking status: Not on file - Smokeless tobacco: Not on file Substance Use Topics - Alcohol use: Not on file - Drug use: Not on file No current outpatient medications on file. No current facility-administered medications for this visit. Allergies As of Date: 02/13/2021 (Not on File) REVIEW OF SYSTEMS Abdomen: no pain Bladder: no dysuria. Breast: . Expanded ROS: N/A Allergies and current medication updated:Yes EXAM: BP 118/64 Wt 134 lb (60.8kg) GENERAL: pleasant, female in no apparent distress HEENT: Normocephalic and atraumatic NECK: full range of motion DERMATOLOGY: Normal, without lesions, non-icteric and non-hirsute PELVIC: external genitalia normal, normal Bartholin's glands, urethra, Taos's glands, no vulvar lesions, normal appearing perineal body and perianal region, small vaginal inclusion cyst noted on the right labia majora posterior aspect. No surrounding erythema. No active drainage. Non tender to palpation NEURO: alert and oriented x3,exam grossly non-focal ASSESSMENT AND PLAN: Encounter Diagnosis ICD-10-CM 1. Vaginal inclusion cyst N89.8 2. Discussed the benign nature of the cyst. Offered incision and drainage. Patient declines at this time. We will keep an eye on it if it gets larger or more bothersome she can return to the office. I spent a total of 15 minutes on the date of the service which included preparing to see the patient, [id number] patient care, completing clinical documentation, performing a medically appropriate examination and counseling and educating the patient/family/caregiver. Sara Gillespie MD [facility] Internal Medicine; [facility] Internal Medicine Work Phone: Instructions* Name Dates Details Patient Instructions Indication:Nonsmoker Start:28-Apr-2021 Instruction Type:Provider Instructions for Treatment How to Access Health Informa tion Online using Patient Portal and [employer] Indication:BMI 23.0-23.9, adult Start:28-Apr-2021 Instruction Type:Patient Education Patient Instructions Indication:Nonsmoker Start:30-Jan-2021 Instruction Type:Provider Instructions for Treatment How to Access Health Informa tion Online using Patient Portal and [employer] Indication:Nonsmoker Start:30-Jan-2021 Instruction Type:Patient Education Patient Instructions Indication:BMI 23.0-23.9, adult Start:27-Jan-2021 Instruction Type:Provider Instructions for Treatment How to Access Health Informa tion Online using Patient Portal and [employer] Indication:BMI 23.0-23.9, adult Start:27-Jan-2021 Instruction Type:Patient Education Patient Instructions Indication:Nonsmoker Start:16-Jan-2021 Instruction Type:Provider Instructions for Treatment How to Access Health Informa tion Online using Patient Portal and [employer] Indication:Nonsmoker Start:16-Jan-2021 Instruction Type:Patient Education [facility]; [facility] Work Phone: Instructions* Name Dates Details Patient Instructions Indication:Nonsmoker Start:28-Apr-2021 Instruction Type:Provider Instructions for Treatment How to Access Health Informa tion Online using Patient Portal and [employer] Indication:BMI 23.0-23.9, adult Start:28-Apr-2021 Instruction Type:Patient Education Patient Instructions Indication:Nonsmoker Start:30-Jan-2021 Instruction Type:Provider Instructions for Treatment How to Access Health Informa tion Online using Patient Portal and [employer] Indication:Nonsmoker Start:30-Jan-2021 Instruction Type:Patient Education Patient Instructions Indication:BMI 23.0-23.9, adult Start:27-Jan-2021 Instruction Type:Provider Instructions for Treatment How to Access Health Informa tion Online using Patient Portal and [employer] Indication:BMI 23.0-23.9, adult Start:27-Jan-2021 Instruction Type:Patient Education Patient Instructions Indication:Nonsmoker Start:16-Jan-2021 Instruction Type:Provider Instructions for Treatment How to Access Health Informa tion Online using Patient Portal and [employer] Indication:Nonsmoker Start:16-Jan-2021 Instruction Type:Patient Education [facility]; [facility] Work Phone: Instructions* Name Dates Details Patient Instructions Indication:Rash Start:03-Sep-2021 Instruction Type:Provider Instructions for Treatment How to Access Health Informa tion Online using Patient Portal and [employer] Indication:Rash Start:03-Sep-2021 Instruction Type:Patient Education Patient Instructions Indication:Nonsmoker Start:28-Apr-2021 Instruction Type:Provider Instructions for Treatment How to Access Health Informa tion Online using Patient Portal and [employer] Indication:BMI 23.0-23.9, adult Start:28-Apr-2021 Instruction Type:Patient Education Patient Instructions Indication:Nonsmoker Start:30-Jan-2021 Instruction Type:Provider Instructions for Treatment How to Access Health Informa tion Online using Patient Portal and [employer] Indication:Nonsmoker Start:30-Jan-2021 Instruction Type:Patient Education Patient Instructions Indication:BMI 23.0-23.9, adult Start:27-Jan-2021 Instruction Type:Provider Instructions for Treatment How to Access Health Informa tion Online using Patient Portal and [employer] Indication:BMI 23.0-23.9, adult Start:27-Jan-2021 Instruction Type:Patient Education Patient Instructions Indication:Nonsmoker Start:16-Jan-2021 Instruction Type:Provider Instructions for Treatment How to Access Health Informa tion Online using Patient Portal and [employer] Indication:Nonsmoker Start:16-Jan-2021 Instruction Type:Patient Education [facility]; [facility] Work Phone: Instructions* Name Dates Details Patient Instructions Indication:Rash Start:03-Sep-2021 Instruction Type:Provider Instructions for Treatment How to Access Health Informa tion Online using Patient Portal and [employer] Indication:Rash Start:03-Sep-2021 Instruction Type:Patient Education Patient Instructions Indication:Nonsmoker Start:28-Apr-2021 Instruction Type:Provider Instructions for Treatment How to Access Health Informa tion Online using Patient Portal and [employer] Indication:BMI 23.0-23.9, adult Start:28-Apr-2021 Instruction Type:Patient Education Patient Instructions Indication:Nonsmoker Start:30-Jan-2021 Instruction Type:Provider Instructions for Treatment How to Access Health Informa tion Online using Patient Portal and [employer] Indication:Nonsmoker Start:30-Jan-2021 Instruction Type:Patient Education Patient Instructions Indication:BMI 23.0-23.9, adult Start:27-Jan-2021 Instruction Type:Provider Instructions for Treatment How to Access Health Informa tion Online using Patient Portal and [employer] Indication:BMI 23.0-23.9, adult Start:27-Jan-2021 Instruction Type:Patient Education Patient Instructions Indication:Nonsmoker Start:16-Jan-2021 Instruction Type:Provider Instructions for Treatment How to Access Health Informa tion Online using Patient Portal and [employer] Indication:Nonsmoker Start:16-Jan-2021 Instruction Type:Patient Education [facility]; [facility] Work Phone: Instructions* Name Dates Details Patient Instructions Indication:Urinary incontinence, post-void dribbling Start:09-Feb-2022 Instruction Type:Provider Instructions for Treatment How to Access Health Informa tion Online using Patient Portal and [employer] Indication:Urinary incontinence, post-void dribbling Start:09-Feb-2022 Instruction Type:Patient Education Patient Instructions Indication:Rash Start:03-Sep-2021 Instruction Type:Provider Instructions for Treatment How to Access Health Informa tion Online using Patient Portal and [employer] Indication:Rash Start:03-Sep-2021 Instruction Type:Patient Education Patient Instructions Indication:Nonsmoker Start:28-Apr-2021 Instruction Type:Provider Instructions for Treatment How to Access Health Informa tion Online using Patient Portal and [employer] Indication:BMI 23.0-23.9, adult Start:28-Apr-2021 Instruction Type:Patient Education Patient Instructions Indication:Nonsmoker Start:30-Jan-2021 Instruction Type:Provider Instructions for Treatment How to Access Health Informa tion Online using Patient Portal and [employer] Indication:Nonsmoker Start:30-Jan-2021 Instruction Type:Patient Education Patient Instructions Indication:BMI 23.0-23.9, adult Start:27-Jan-2021 Instruction Type:Provider Instructions for Treatment How to Access Health Informa tion Online using Patient Portal and [employer] Indication:BMI 23.0-23.9, adult Start:27-Jan-2021 Instruction Type:Patient Education Patient Instructions Indication:Nonsmoker Start:16-Jan-2021 Instruction Type:Provider Instructions for Treatment How to Access Health Informa tion Online using Patient Portal and [employer] Indication:Nonsmoker Start:16-Jan-2021 Instruction Type:Patient Education [facility]; [facility] Work Phone: Instructions* Name Dates Details Patient Instructions Indication:Urinary incontinence, post-void dribbling Start:09-Feb-2022 Instruction Type:Provider Instructions for Treatment How to Access Health Informa tion Online using Patient Portal and [employer] Indication:Urinary incontinence, post-void dribbling Start:09-Feb-2022 Instruction Type:Patient Education Patient Instructions Indication:Rash Start:03-Sep-2021 Instruction Type:Provider Instructions for Treatment How to Access Health Informa tion Online using Patient Portal and [employer] Apps Indication:Rash Start:03-Sep-2021 Instruction Type:Patient Education Patient Instructions Indication:Nonsmoker Start:28-Apr-2021 Instruction Type:Provider Instructions for Treatment How to Access Health Informa tion Online using Patient Portal and [employer] Indication:BMI 23.0-23.9, adult Start:28-Apr-2021 Instruction Type:Patient Education Patient Instructions Indication:Nonsmoker Start:30-Jan-2021 Instruction Type:Provider Instructions for Treatment How to Access Health Informa tion Online using Patient Portal and [employer] Indication:Nonsmoker Start:30-Jan-2021 Instruction Type:Patient Education Patient Instructions Indication:BMI 23.0-23.9, adult Start:27-Jan-2021 Instruction Type:Provider Instructions for Treatment How to Access Health Informa tion Online using Patient Portal and [employer] Indication:BMI 23.0-23.9, adult Start:27-Jan-2021 Instruction Type:Patient Education Patient Instructions Indication:Nonsmoker Start:16-Jan-2021 Instruction Type:Provider Instructions for Treatment How to Access Health Informa tion Online using Patient Portal and [employer] Indication:Nonsmoker Start:16-Jan-2021 Instruction Type:Patient Education [facility]; [facility] Work Phone: Instructions* Name Dates Details Patient Instructions Indication:Urinary incontinence, post-void dribbling Start:09-Feb-2022 Instruction Type:Provider Instructions for Treatment How to Access Health Informa tion Online using Patient Portal and [employer] Apps Indication:Urinary incontinence, post-void dribbling Start:09-Feb-2022 Instruction Type:Patient Education Patient Instructions Indication:Rash Start:03-Sep-2021 Instruction Type:Provider Instructions for Treatment How to Access Health Informa tion Online using Patient Portal and [employer] Indication:Rash Start:03-Sep-2021 Instruction Type:Patient Education Patient Instructions Indication:Nonsmoker Start:28-Apr-2021 Instruction Type:Provider Instructions for Treatment How to Access Health Informa tion Online using Patient Portal and [employer] Indication:BMI 23.0-23.9, adult Start:28-Apr-2021 Instruction Type:Patient Education Patient Instructions Indication:Nonsmoker Start:30-Jan-2021 Instruction Type:Provider Instructions for Treatment How to Access Health Informa tion Online using Patient Portal and [employer] Indication:Nonsmoker Start:30-Jan-2021 Instruction Type:Patient Education Patient Instructions Indication:BMI 23.0-23.9, adult Start:27-Jan-2021 Instruction Type:Provider Instructions for Treatment How to Access Health Informa tion Online using Patient Portal and [employer] Indication:BMI 23.0-23.9, adult Start:27-Jan-2021 Instruction Type:Patient Education Patient Instructions Indication:Nonsmoker Start:16-Jan-2021 Instruction Type:Provider Instructions for Treatment How to Access Health Informa tion Online using Patient Portal and [employer] Indication:Nonsmoker Start:16-Jan-2021 Instruction Type:Patient Education [facility]; [facility] Work Phone: Instructions* Name Dates Details How to Access Health Informa tion Online using Patient Portal and [employer] Indication:Nonsmoker Start:10-Mar-2022 Instruction Type:Patient Education Patient Instructions Indication:Nonsmoker Start:10-Mar-2022 Instruction Type:Provider Instructions for Treatment Patient Instructions Indication:Urinary incontinence, post-void dribbling Start:09-Feb-2022 Instruction Type:Provider Instructions for Treatment How to Access Health Informa tion Online using Patient Portal and [employer] Apps Indication:Urinary incontinence, post-void dribbling Start:09-Feb-2022 Instruction Type:Patient Education Patient Instructions Indication:Rash Start:03-Sep-2021 Instruction Type:Provider Instructions for Treatment How to Access Health Informa tion Online using Patient Portal and [employer] Apps Indication:Rash Start:03-Sep-2021 Instruction Type:Patient Education Patient Instructions Indication:Nonsmoker Start:28-Apr-2021 Instruction Type:Provider Instructions for Treatment How to Access Health Informa tion Online using Patient Portal and [employer] Apps Indication:BMI 23.0-23.9, adult Start:28-Apr-2021 Instruction Type:Patient Education Patient Instructions Indication:Nonsmoker Start:30-Jan-2021 Instruction Type:Provider Instructions for Treatment How to Access Health Informa tion Online using Patient Portal and [employer] Apps Indication:Nonsmoker Start:30-Jan-2021 Instruction Type:Patient Education Patient Instructions Indication:BMI 23.0-23.9, adult Start:27-Jan-2021 Instruction Type:Provider Instructions for Treatment How to Access Health Informa tion Online using Patient Portal and [employer] Indication:BMI 23.0-23.9, adult Start:27-Jan-2021 Instruction Type:Patient Education Patient Instructions Indication:Nonsmoker Start:16-Jan-2021 Instruction Type:Provider Instructions for Treatment How to Access Health Informa tion Online using Patient Portal and [employer] Apps Indication:Nonsmoker Start:16-Jan-2021 Instruction Type:Patient Education [facility]; [facility] Work Phone: Instructions* Name Dates Details How to Access Health Informa tion Online using Patient Portal and [employer] Apps Indication:Nonsmoker Start:10-Mar-2022 Instruction Type:Patient Education Patient Instructions Indication:Nonsmoker Start:10-Mar-2022 Instruction Type:Provider Instructions for Treatment Patient Instructions Indication:Urinary incontinence, post-void dribbling Start:09-Feb-2022 Instruction Type:Provider Instructions for Treatment How to Access Health Informa tion Online using Patient Portal and [employer] Indication:Urinary incontinence, post-void dribbling Start:09-Feb-2022 Instruction Type:Patient Education Patient Instructions Indication:Rash Start:03-Sep-2021 Instruction Type:Provider Instructions for Treatment How to Access Health Informa tion Online using Patient Portal and [employer] Apps Indication:Rash Start:03-Sep-2021 Instruction Type:Patient Education Patient Instructions Indication:Nonsmoker Start:28-Apr-2021 Instruction Type:Provider Instructions for Treatment How to Access Health Informa tion Online using Patient Portal and [employer] Indication:BMI 23.0-23.9, adult Start:28-Apr-2021 Instruction Type:Patient Education Patient Instructions Indication:Nonsmoker Start:30-Jan-2021 Instruction Type:Provider Instructions for Treatment How to Access Health Informa tion Online using Patient [employer] and [employer] Apps Indication:Nonsmoker Start:30-Jan-2021 Instruction Type:Patient Education Patient Instructions Indication:BMI 23.0-23.9, adult Start:27-Jan-2021 Instruction Type:Provider Instructions for Treatment How to Access Health Informa tion Online using Patient [employer] and [employer] Apps Indication:BMI 23.0-23.9, adult Start:27-Jan-2021 Instruction Type:Patient Education Patient Instructions Indication:Nonsmoker Start:16-Jan-2021 Instruction Type:Provider Instructions for Treatment How to Access Health Informa tion Online using Patient [employer] and [employer] Indication:Nonsmoker Start:16-Jan-2021 Instruction Type:Patient Education [facility]; [facility] Work Phone: Instructions* Name Dates Details How to Access Health Informa tion Online using Patient Portal and [employer] Indication:Nonsmoker Start:10-Mar-2022 Instruction Type:Patient Education Patient Instructions Indication:Nonsmoker Start:10-Mar-2022 Instruction Type:Provider Instructions for Treatment Patient Instructions Indication:Urinary incontinence, post-void dribbling Start:09-Feb-2022 Instruction Type:Provider Instructions for Treatment How to Access Health Informa tion Online using Patient Portal and [employer] Indication:Urinary incontinence, post-void dribbling Start:09-Feb-2022 Instruction Type:Patient Education Patient Instructions Indication:Rash Start:03-Sep-2021 Instruction Type:Provider Instructions for Treatment How to Access Health Informa tion Online using Patient Portal and [employer] Indication:Rash Start:03-Sep-2021 Instruction Type:Patient Education Patient Instructions Indication:Nonsmoker Start:28-Apr-2021 Instruction Type:Provider Instructions for Treatment How to Access Health Informa tion Online using Patient Portal and [employer] Indication:BMI 23.0-23.9, adult Start:28-Apr-2021 Instruction Type:Patient Education Patient Instructions Indication:Nonsmoker Start:30-Jan-2021 Instruction Type:Provider Instructions for Treatment How to Access Health Informa tion Online using Patient Portal and [employer] Indication:Nonsmoker Start:30-Jan-2021 Instruction Type:Patient Education Patient Instructions Indication:BMI 23.0-23.9, adult Start:27-Jan-2021 Instruction Type:Provider Instructions for Treatment How to Access Health Informa tion Online using Patient Portal and [employer] Indication:BMI 23.0-23.9, adult Start:27-Jan-2021 Instruction Type:Patient Education Patient Instructions Indication:Nonsmoker Start:16-Jan-2021 Instruction Type:Provider Instructions for Treatment How to Access Health Informa tion Online using Patient Portal and [employer] Indication:Nonsmoker Start:16-Jan-2021 Instruction Type:Patient Education [facility]; [facility] Work Phone: Instructions* Name Dates Details How to Access Health Informa tion Online using Patient Portal and [employer] Indication:Nonsmoker Start:10-Mar-2022 Instruction Type:Patient Education Patient Instructions Indication:Nonsmoker Start:10-Mar-2022 Instruction Type:Provider Instructions for Treatment Patient Instructions Indication:Urinary incontinence, post-void dribbling Start:09-Feb-2022 Instruction Type:Provider Instructions for Treatment How to Access Health Informa tion Online using Patient [employer] and [employer] Indication:Urinary incontinence, post-void dribbling Start:09-Feb-2022 Instruction Type:Patient Education Patient Instructions Indication:Rash Start:03-Sep-2021 Instruction Type:Provider Instructions for Treatment How to Access Health Informa tion Online using Patient Portal and [employer] Indication:Rash Start:03-Sep-2021 Instruction Type:Patient Education Patient Instructions Indication:Nonsmoker Start:28-Apr-2021 Instruction Type:Provider Instructions for Treatment How to Access Health Informa tion Online using Patient Portal and [employer] Indication:BMI 23.0-23.9, adult Start:28-Apr-2021 Instruction Type:Patient Education Patient Instructions Indication:Nonsmoker Start:30-Jan-2021 Instruction Type:Provider Instructions for Treatment How to Access Health Informa tion Online using Patient Portal and [employer] Indication:Nonsmoker Start:30-Jan-2021 Instruction Type:Patient Education Patient Instructions Indication:BMI 23.0-23.9, adult Start:27-Jan-2021 Instruction Type:Provider Instructions for Treatment How to Access Health Informa tion Online using Patient Portal and [employer] Indication:BMI 23.0-23.9, adult Start:27-Jan-2021 Instruction Type:Patient Education Patient Instructions Indication:Nonsmoker Start:16-Jan-2021 Instruction Type:Provider Instructions for Treatment How to Access Health Informa tion Online using Patient Portal and [employer] Indication:Nonsmoker Start:16-Jan-2021 Instruction Type:Patient Education [facility]; [facility] Work Phone: Instructions* Name Dates Details Patient Instructions Indication:Hypercholesteremia Start:13-Sep-2022 Instruction Type:Provider Instructions for Treatment How to Access Health Informa tion Online using Patient Portal and [employer] Indication:Hypercholesteremia Start:13-Sep-2022 Instruction Type:Patient Education How to Access Health Informa tion Online using Patient Portal and [employer] Indication:Nonsmoker Start:10-Mar-2022 Instruction Type:Patient Education Patient Instructions Indication:Nonsmoker Start:10-Mar-2022 Instruction Type:Provider Instructions for Treatment Patient Instructions Indication:Urinary incontinence, post-void dribbling Start:09-Feb-2022 Instruction Type:Provider Instructions for Treatment How to Access Health Informa tion Online using Patient Portal and [employer] Indication:Urinary incontinence, post-void dribbling Start:09-Feb-2022 Instruction Type:Patient Education Patient Instructions Indication:Rash Start:03-Sep-2021 Instruction Type:Provider Instructions for Treatment How to Access Health Informa tion Online using Patient Portal and [employer] Indication:Rash Start:03-Sep-2021 Instruction Type:Patient Education Patient Instructions Indication:Nonsmoker Start:28-Apr-2021 Instruction Type:Provider Instructions for Treatment How to Access Health Informa tion Online using Patient Portal and [employer] Indication:BMI 23.0-23.9, adult Start:28-Apr-2021 Instruction Type:Patient Education Patient Instructions Indication:Nonsmoker Start:30-Jan-2021 Instruction Type:Provider Instructions for Treatment How to Access Health Informa tion Online using Patient Portal and [employer] Indication:Nonsmoker Start:30-Jan-2021 Instruction Type:Patient Education Patient Instructions Indication:BMI 23.0-23.9, adult Start:27-Jan-2021 Instruction Type:Provider Instructions for Treatment How to Access Health Informa tion Online using Patient Portal and [employer] Indication:BMI 23.0-23.9, adult Start:27-Jan-2021 Instruction Type:Patient Education Patient Instructions Indication:Nonsmoker Start:16-Jan-2021 Instruction Type:Provider Instructions for Treatment How to Access Health Informa tion Online using Patient Portal and [employer] Indication:Nonsmoker Start:16-Jan-2021 Instruction Type:Patient Education [facility]; [facility] Work Phone: Instructions* Name Dates Details Patient Instructions Indication:Hypercholesteremia Start:13-Sep-2022 Instruction Type:Provider Instructions for Treatment How to Access Health Informa tion Online using Patient Portal and [employer] Indication:Hypercholesteremia Start:13-Sep-2022 Instruction Type:Patient Education How to Access Health Informa tion Online using Patient Portal and [employer] Indication:Nonsmoker Start:10-Mar-2022 Instruction Type:Patient Education Patient Instructions Indication:Nonsmoker Start:10-Mar-2022 Instruction Type:Provider Instructions for Treatment Patient Instructions Indication:Urinary incontinence, post-void dribbling Start:09-Feb-2022 Instruction Type:Provider Instructions for Treatment How to Access Health Informa tion Online using Patient Portal and [employer] Indication:Urinary incontinence, post-void dribbling Start:09-Feb-2022 Instruction Type:Patient Education Patient Instructions Indication:Rash Start:03-Sep-2021 Instruction Type:Provider Instructions for Treatment How to Access Health Informa tion Online using Patient Portal and [employer] Indication:Rash Start:03-Sep-2021 Instruction Type:Patient Education Patient Instructions Indication:Nonsmoker Start:28-Apr-2021 Instruction Type:Provider Instructions for Treatment How to Access Health Informa tion Online using Patient Portal and [employer] Indication:BMI 23.0-23.9, adult Start:28-Apr-2021 Instruction Type:Patient Education Patient Instructions Indication:Nonsmoker Start:30-Jan-2021 Instruction Type:Provider Instructions for Treatment How to Access Health Informa tion Online using Patient Portal and [employer]rd [employer] Apps Indication:Nonsmoker Start:30-Jan-2021 Instruction Type:Patient Education Patient Instructions Indication:BMI 23.0-23.9, adult Start:27-Jan-2021 Instruction Type:Provider Instructions for Treatment How to Access Health Informa tion Online using Patient Portal and [employer]rd [employer] Apps Indication:BMI 23.0-23.9, adult Start:27-Jan-2021 Instruction Type:Patient Education Patient Instructions Indication:Nonsmoker Start:16-Jan-2021 Instruction Type:Provider Instructions for Treatment How to Access Health Informa tion Online using Patient Portal and [employer] Apps Indication:Nonsmoker Start:16-Jan-2021 Instruction Type:Patient Education [facility] Work Phone: Instructions* Name Dates Details Patient Instructions Indication:Hypercholesteremia Start:13-Sep-2022 Instruction Type:Provider Instructions for Treatment How to Access Health Informa tion Online using Patient Portal and [employer] Apps Indication:Hypercholesteremia Start:13-Sep-2022 Instruction Type:Patient Education How to Access Health Informa tion Online using Patient Portal and [employer] Apps Indication:Nonsmoker Start:10-Mar-2022 Instruction Type:Patient Education Patient Instructions Indication:Nonsmoker Start:10-Mar-2022 Instruction Type:Provider Instructions for Treatment Patient Instructions Indication:Urinary incontinence, post-void dribbling Start:09-Feb-2022 Instruction Type:Provider Instructions for Treatment How to Access Health Informa tion Online using Patient Portal and [employer] Apps Indication:Urinary incontinence, post-void dribbling Start:09-Feb-2022 Instruction Type:Patient Education Patient Instructions Indication:Rash Start:03-Sep-2021 Instruction Type:Provider Instructions for Treatment How to Access Health Informa tion Online using Patient Portal and [employer] Apps Indication:Rash Start:03-Sep-2021 Instruction Type:Patient Education Patient Instructions Indication:Nonsmoker Start:28-Apr-2021 Instruction Type:Provider Instructions for Treatment How to Access Health Informa tion Online using Patient Portal and [employer]rd [employer] Apps Indication:BMI 23.0-23.9, adult Start:28-Apr-2021 Instruction Type:Patient Education Patient Instructions Indication:Nonsmoker Start:30-Jan-2021 Instruction Type:Provider Instructions for Treatment How to Access Health Informa tion Online using Patient Portal and [employer] Apps Indication:Nonsmoker Start:30-Jan-2021 Instruction Type:Patient Education Patient Instructions Indication:BMI 23.0-23.9, adult Start:27-Jan-2021 Instruction Type:Provider Instructions for Treatment How to Access Health Informa tion Online using Patient Portal and [employer] Apps Indication:BMI 23.0-23.9, adult Start:27-Jan-2021 Instruction Type:Patient Education Patient Instructions Indication:Nonsmoker Start:16-Jan-2021 Instruction Type:Provider Instructions for Treatment How to Access Health Informa tion Online using Patient Portal and [employer] Apps Indication:Nonsmoker Start:16-Jan-2021 Instruction Type:Patient Education [facility]; [facility] Work Phone: Family History Unknown Family Member Name Dates Details Diabetes Mellitus Comments:grandparent Status:Active Heart/Lung Disease Comments:Father. Status:Active High Chol Comments:Father. Status:Active Thyroid Problems Comments:Sister. Status:Active Unknown Family Member Name Dates Details Diabetes Mellitus Comments:grandparent Status:Active Heart/Lung Disease Comments:Father. Status:Active High Chol Comments:Father. Status:Active Thyroid Problems Comments:Sister. Status:Active Unknown Family Member Name Dates Details Diabetes Mellitus Comments:grandparent Status:Active Heart/Lung Disease Comments:Father. Status:Active High Chol Comments:Father. Status:Active Thyroid Problems Comments:Sister. Status:Active Unknown Family Member Name Dates Details Diabetes Mellitus Comments:grandparent Status:Active Heart/Lung Disease Comments:Father. Status:Active High Chol Comments:Father. Status:Active Thyroid Problems Comments:Sister. Status:Active Unknown Family Member Name Dates Details Diabetes Mellitus Comments:grandparent Status:Active Heart/Lung Disease Comments:Father. Status:Active High Chol Comments:Father. Status:Active Thyroid Problems Comments:Sister. Status:Active Unknown Family Member Name Dates Details Diabetes Mellitus Comments:grandparent Status:Active Heart/Lung Disease Comments:Father. Status:Active High Chol Comments:Father. Status:Active Thyroid Problems Comments:Sister. Status:Active Unknown Family Member Name Dates Details Diabetes Mellitus Comments:grandparent Status:Active Heart/Lung Disease Comments:Father. Status:Active High Chol Comments:Father. Status:Active Thyroid Problems Comments:Sister. Status:Active Unknown Family Member Name Dates Details Diabetes Mellitus Comments:grandparent Status:Active Heart/Lung Disease Comments:Father. Status:Active High Chol Comments:Father. Status:Active Thyroid Problems Comments:Sister. Status:Active Unknown Family Member Name Dates Details Diabetes Mellitus Comments:grandparent Status:Active Heart/Lung Disease Comments:Father. Status:Active High Chol Comments:Father. Status:Active Thyroid Problems Comments:Sister. Status:Active Unknown Family Member Name Dates Details Diabetes Mellitus Comments:grandparent Status:Active Heart/Lung Disease Comments:Father. Status:Active High Chol Comments:Father. Status:Active Thyroid Problems Comments:Sister. Status:Active Unknown Family Member Name Dates Details Diabetes Mellitus Comments:grandparent Status:Active Heart/Lung Disease Comments:Father. Status:Active High Chol Comments:Father. Status:Active Thyroid Problems Comments:Sister. Status:Active Unknown Family Member Name Dates Details Diabetes Mellitus Comments:grandparent Status:Active Heart/Lung Disease Comments:Father. Status:Active High Chol Comments:Father. Status:Active Thyroid Problems Comments:Sister. Status:Active Unknown Family Member Name Dates Details Diabetes Mellitus Comments:grandparent Status:Active Heart/Lung Disease Comments:Father. Status:Active High Chol Comments:Father. Status:Active Thyroid Problems Comments:Sister. Status:Active Unknown Family Member Name Dates Details Diabetes Mellitus Comments:grandparent Status:Active Heart/Lung Disease Comments:Father. Status:Active High Chol Comments:Father. Status:Active Thyroid Problems Comments:Sister. Status:Active Unknown Family Member Name Dates Details Diabetes Mellitus Comments:grandparent Status:Active Heart/Lung Disease Comments:Father. Status:Active High Chol Comments:Father. Status:Active Thyroid Problems Comments:Sister. Status:Active Summary Purpose Advance Directives No Advanced Directives Records FoundNo Advanced Directives Records Found Additional Source Comments INFORMATION SOURCE (unrecogn ized section and content) DATE CREATED AUTHOR AUTHOR'S NAT ZAMORA 03/17/2022 [facility] FOR RECORDS PERTAINING TO PATIENTS WHO ARE OR HAVE BEEN ENROLLED IN A CHEMICAL DEPENDENCY/SUBSTANCEABUSE PROGRAM, SOME INFORMATION MAY BE OMITTED. This clinical summary was aggregated from multiple sources. Caution should be exercised in using it in the provision of clinical care. This summary normalizes information from multiple sources, and as a consequence, information in this document may materially change the coding, format and clinical context of patient data. In addition, data may be omitted in some cases. CLINICAL DECISIONS SHOULD BE BASED ON THE PRIMARY CLINICAL RECORDS. [facility] [employer] [facility]. provides no warranty or guarantee of the accuracy or completeness of information in this document.
== END | disposition home or self-care (01) ==
PROVIDERS: PCP Internal Medicine; Referring Provider Nurse Practitioner Family; Visit Provider Nurse Practitioner Family
DX: Z78.0 Asymptomatic menopausal state (principal)
CPT/HCPCS: 77080

== ENCOUNTER → 2024-03-19 | Outpatient (CLI) | payer MEDICARE, SELFPAY ==
--- NOTE | 2024-03-19 13:18 | BI_ITS ---
MAMMOGRAPHY - BILATERAL SCREENING 3-D TOMOSYNTHESIS REASON FOR EXAM: Female, 74 years old. Screening PERTINENT HISTORY: No significant family history. TECHNIQUE: 2-D mammograms and 3-D Tomosynthesis of the breast (s) were performed. CAD was performed. COMPARISON: 03/16/2023 FINDINGS: The breast composition is composed of scattered fibroglandular density. Scattered benign calcifications are seen. No dense spiculated masses or suspicious microcalcifications are identified. No architectural distortion is identified. There is no skin thickening or retraction. There has been no significant change since the prior study. BI/SCRN MAMM (CAD)W/LOUISE BILAT IMPRESSION: No mammographic signs of malignancy. Routine yearly mammograms recommended. ASSESSMENT CATEGORY: BIRADS Category 1: Negative. A letter regarding these results will be sent to the patient by the facility within 30 days. FOLLOW UP RECOMMENDATION: Yearly follow up mammogram recommended. (A) Approximately 10% of breast cancers are not detected by mammography. A normal mammogram should not delay biopsy of a clinically suspicious abnormality. Electronically Signed: Juan M Mccallum MD at 17:59 EST ,
== END | disposition home or self-care (01) ==
LOC: OPBI 13:17
PROVIDERS: PCP Nurse Practitioner Family; Referring Provider Nurse Practitioner Family; Visit Provider Nurse Practitioner Family
DX: Z12.31 Encounter for screening mammogram for malignant neoplasm of breast (principal)
CPT/HCPCS: 77063; 77067

== ENCOUNTER → 2025-03-15 | Outpatient (CLI) | payer MEDICARE, SELFPAY ==
[2025-03-15 10:23] LABS: Cholesterol 256 mg/dL (<=200); Low Density Lipoprotein Calc. 155 mg/dL; Triglycerides 130 mg/dL; Very Low Density Lipoprotein 26 mg/dL (5-40); cholesterol:hdl ratio screen 3.28
== END | disposition home or self-care (01) ==
LOC: LAB 08:27
PROVIDERS: PCP Physician Assistant; Referring Provider Nurse Practitioner Family; Visit Provider Nurse Practitioner Family
DX: E78.5 Hyperlipidemia, unspecified (principal)
CPT/HCPCS: 36415; 80061